=== PATIENT | male | born 1935 | race Caucasian/White ===

== ENCOUNTER 2016-11-30 02:30 | Inpatient (IN) | payer OTHER ==
[~2016-11-30] VITALS: Ht 172.7 cm; Wt 99.8 kg
[~2016-11-30 02:30] MED LIST: CEFUROXIME250 M1 PO; COMPOUND TOP; FINASTERIDE5 M1 PO; FLOMAX0.4 M1 PO
--- NOTE | 2016-11-30 09:53 | Patient Discharge Instructions ---
Discharge Instructions General Discharge Information You were seen/treated for: Hip pain You had these procedures: Total hip replacement Watch for these problems: temp>101, increased redness or drainage of wounds Do not soak the wound: Yes No bath, but you may shower: Yes Other wound care: Keep incision clean and dry. May shower, no bathing. Diet Continue normal diet: Yes Activity Activity Self Limited: Yes Activity Limited to: Weight bear as tolerated Acute Coronary Syndrome Inclusion Criteria At DC or during hospital stay patient has or had the following: ACS DIAGNOSIS No Discharge Core Measures Meds if any: Prescribed or Continued at Discharge Meds if any: NOT Prescribed or Continued at Discharge Congestive Heart Failure Inclusion Criteria At DC or during hospital stay patient has or had the following: CHF DIAGNOSIS No Discharge Core Measures Meds if any: Prescribed or Continued at Discharge Meds if any: NOT Prescribed or Continued at Discharge Cerebrovascular accident Inclusion Criteria At DC or during hospital stay patient has or had the following: CVA/TIA Diagnosis No Discharge Core Measures Meds if any: Prescribed or Continued at Discharge Meds if any: NOT Prescribed or Continued at Discharge Venous thromboembolism Inclusion Criteria VTE Diagnosis No VTE Type NONE VTE Confirmed by (Test) NONE Discharge Core Measures - Per Current guidelines, there needs to be overlap - treatment for the first 5 days of Warfarin therapy. - If discharged on Warfarin prior to 5 days of - overlap therapy, the patient will need to be - assessed for post discharge needs including - *Post discharge parental anticoagulation - *Warfarin and/or parental anticoagulation education - *Follow up date to check INR post discharge At least 5 days overlap therapy as Inpatient No Meds if any: Prescribed or Continued at Discharge Note: Overlap Therapy is Warfarin and Anticoagulant Meds if any: NOT Prescribed or Continued at Discharge
[2016-11-30] MEDS ORDERED: MS CONTIN15 M2 PO (09:55)
[2016-11-30] MEDS ORDERED: COLACE100 M1 PO (09:55)
[2016-11-30] MEDS ORDERED: DILAUDID4 M1 PO (09:55)
[2016-11-30] MEDS ORDERED: MIRALAX17 G1 PO (09:55)
[2016-11-30] MEDS ORDERED: ASPIRIN EC325 M2 PO (09:55)
--- NOTE | 2016-11-30 09:57 | Admission Core Measures ---
Admission Meds I reviewed the following Meds: Current Medications Sig/Chito Start time Last Medication Dose Stop Time Status Admin Acetaminophen 975 MG ONCE 11/30 NR (Tylenol) 11/30 2358 Cefazolin Sodium 2,000 MG ONCE 11/30 NR (Kefzol-Ancef Inj) 11/30 2358 Finasteride 5 MG DAILY 11/30 999 UNVr (Proscar) Oxycodone HCl 10 MG ONCE 11/30 NR (Roxicodone) 11/30 2358 Tamsulosin HCl 0.4 MG DAILY 11/30 1000 UNVr (Flomax) Acute Coronary Syndrome Inclusion Criteria ACS Diagnosis No Inpatient Core Measures LDL Reminder: If No, please order W/I first 24hr of stay Congestive Heart Failure Inclusion Criteria CHF Diagnosis No Cerebrovascular accident Inclusion Criteria CVA/TIA Diagnosis No Inpatient Core Measures Bedside Swallow Eval Reminder: If BSE failed, place ST order Antithrombotic Reminder: Order Antithrombotic Medication by end of day 2 Antithrombotic Reminder: Document Reason Antithrombotic Not ordered by end of day 2 AFIB/Flutter Reminder: If Present, add to problem list AFIB/Flutter Reminder: Order Anticoag Medication for pts with AFIB/Flutter Atherosclerosis Reminder: If Present, add to problem list LDL Reminder: If No, please order W/I first 24hr of stay PT Order Reminder: If No, please order Venous thromboembolism Inpatient Core Measures VTE Risk Factors: Age > 40, Surgery No [facility] VTE prophylaxis d/t No contraindications No VTE Pharm Prophylaxis d/t No contraindications Inclusion Criteria - Per Current guidelines, there needs to be overlap - treatment for the first 5 days of Warfarin therapy. - Parenteral Anticoagulation (IV or SC) needs to be - given along with Warfarin therapy. VTE Diagnosis No VTE Type NONE VTE Confirmed by (Test) NONE Problem List As ranked by this Provider includes Assessment & Plan 1. Status post total hip replacement, right HOME MEDS Home Med List Aspirin (Ecotrin*) 325 MG TABLET.DR 1 TAB PO BID BLOOD THINNER Docusate Sodium (Colace) 100 MG CAPSULE 1 CAP PO BID CONSTIPATION Finasteride 5 MG TABLET 1 TAB PO DAILY PROSTRATE Hydromorphone HCl (Dilaudid) 4 MG TABLET 1-2 TAB PO Q4P PAIN Morphine Sulfate (Ms Contin) 15 MG TABLET.ER 1 TAB PO BID PAIN Polyethylene Glycol 3350 (Miralax) 17 GRAM POWD.PACK 1 PAC PO DAILY CONSTIPATION Tamsulosin HCl (Flomax) 0.4 MG CAP.ER.24H 1 TAB PO DAILY PROSTRATE
--- NOTE | 2016-11-30 10:04 | Surg Short-stay <48hrs Dis Sum ---
Visit Information Visit Dates Admission Date: 11/30/16 Discharge Date: 12/01/16 Surgical Short Stay DC Summary Admission Diagnosis: Hip pain Final Diagnosis: s/p right total hip replacement Procedure(s): R THR - see operartive report Summary/Significant Findings: Pt underwent a right total hip replacemet on 11/30. He returned to the PACU in stable condition. Over the next 24 hours, his pain was well controlled, he was able to void spontaneously and he worked with PT. He was cleared by PT for discharge home with services. Condition at Discharge: good Discharge Disposition: home health services Discharge instructions provided to patient/family: Yes Post discharge follow-up plan: Scheduled appointment with Dr Baron in 6 weeks.
--- NOTE | 2016-11-30 11:55 | RADIOLOGY REPORT ---
EXAMINATION: XR HIP, RIGHT CLINICAL INFORMATION: Right hip replacement. COMPARISON: 04/07/2016 TECHNIQUE: Two views of the right hip. FINDINGS: The noncemented components of the right total hip arthroplasty are in their expected positions. The femoral head prosthesis is well centered within the acetabular cup and the femoral stem is located in the proximal femoral diaphysis. There is no endosteal scalloping or periprosthetic fracture. Alignment at the right hip is anatomic. IMPRESSION: There is satisfactory positioning and alignment of components of the right total hip arthroplasty. No acute periprosthetic fracture.
[2016-11-30 12:39] VITALS: BP 122/80
--- NOTE | 2016-11-30 13:41 | PN- Orthopedic ---
Subjective Subjective: Patient received on surgical floor, POD 0, s/p right hip replacement with an anterior approach. Is without complaints at the present time. Specifically denies chest pain, shortness of breath and difficulty breathing. Denies nausea and vomitting, has eaten. Has yet to mobilize, was numb in the immediate post operative period to bilateral lower extremities, but states that he has had return of sensation and strength bilaterally. Objective Vital Signs and I&Os Vital Signs Date Time Temp Pulse Resp B/P B/P Pulse O2 O2 Flow FiO2 Mean Ox Delivery Rate 11/30 1239 76 16 122/80 98 Room Air 11/30 1214 98 Room Air Intake & Output 11/30 1600 11/30 0800 11/30 0000 11/29 1600 11/29 0800 11/29 0000 Intake Total Output Total Balance Patient 220 lb Weight Weight Reported by Patient Measurement Method Physical Exam: General: Alert and oriented x3, no acute distress Cardaic: RRR, s1s2 Pulmonary: Expiratory wheeze noted left Abdomen: non-tender, non-distended Extremities: Moves all extremities, distal sensation intact. Skin warm and well perfused. DP pulses palpable bilaterally. Motor 5/5 in plantar and dorsi flexion. Bilateral calves soft and non-tender. Surgical site: Right hip/groin. Dressing dry and intact. Thigh compartments soft. Assessment/Plan Assessment/Plan This is a 80 year old male, POD 0, s/p R BERNABE, anterior approach. Doing well. PMH significant for BPH, home medications have been restarted. Plan: -Activity: OOB with PT/Nursing, rolling walker, WBAT -ABX ppx: Ancef 2 grams, q8 hours, x 2 additional post operative doses -DVT ppx: Mechanical: ALPS in house, TEDS at discharge Pharmacological: ASA 325 bid -Pain Regimen: PO dilaudid to be given first, 2-4mg depending on pain scale IV morphine to be given as breakthrough every two hours as needed -Diet: Can be advanced as tolerated -Bowel Regimen: Colace 100 bid, Miralax: 17 gm daily -Dispo planning: Likely home with home health services tomorrow Will d/w Dr. Baron Core Measures/Miscellaneous Venous Thromboembolism VTE Risk Factors: Age > 40, Surgery VTE Contraindications: No Contraindications VTE Diagnosis: No VTE Type: NONE VTE Confirmed by (Test): NONE Beta Charles Is Beta Charles a Home Med? No Antibiotics Is Patient on Antibiotics? Yes If Yes: prophylaxis
--- NOTE | 2016-11-30 14:18 | NUR ---
NSG NOTE: PATIENT VOMITTED APPROX 200 CC AFTER EATING LUNCH; PATIENT REFUSING IV ZOFRAN AT THIS TIME; SURGICAL PA SHANELLE AWARE; WILL CONT TO MONITOR
--- NOTE | 2016-11-30 14:19 | NUR ---
NSG NOTE LATE ENTRY: PATIENT ARRIVED TO FLOOR AT APPROX 1140 FROM PACU VIA STRETCHER ACCOMPANIED BY DISTRIBUTION; PATIENT GREETED BY RIP PAEZ TO GET OFF STRETCHER FOLLOWING SURGERY. PATIENT UNABLE TO AMBULATE AT THAT TIME- PATIENT EXPERIENCING NUMBESS TO RT LEG FROM SPINAL; PATIENT A/OX3; RA; VSS (SEE CHARTING); IVF HUNG AND RUNNING PER ORDER; DENIES PAIN; POS CMS/POS PULSES; ICE TO RT HIP; DSG INTACT; PATIENTS 2 DAUGHTERS PRESENT AT THE BEDSIDE; ORIENTED TO ROOM; CALL CASTELLANOS IN REACH; WILL CONT TO MONITOR;
[2016-11-30 14:57] VITALS: BP 160/100
--- NOTE | 2016-11-30 19:37 | Operative Report ---
Operative/Inv Procedure Report Surgery Date: 11/30/16 Name of Procedure: Right total hip replacement Pre-Operative Diagnosis: Primary right hip DJD Post-Operative Diagnosis: Same Estimated Blood Loss: 250 Surgeon/Licensed Psychiatric Technician: AMANDA WIGGINS,RACIEL Arrieta Anesthesia: block Operative/Procedure Note Note: Description of Procedure: The patient was taken to the operating room and positively identified. After induction of spinal anesthesia and administration of appropriate pre-operative antibiotics, the patient was positioned supine on the operating room table and all bony prominences were well padded. After performing a surgical timeout, the right lower extremity was prepped and draped in the usual sterile fashion. A direct anterior approach was made to the right hip. The incision was carried sharply through superficial soft tissues to the level of the fascia. Meticulous hemostasis was maintained with Bovie electocautery. The fascia over the tensor fascia alo muscle was opened sharply and the interval between the TFL and the sartorius was entered bluntly taking care to stay lateral to the lateral femoral cutaneous nerve. Retractors were placed around the femoral neck and the pericapsular fat was identified. The ascending branches of the lateral femoral circumflex vessels were identified and carefully coagulated. The pericapsular fat and anterior capsule were then resected. A napkin ring osteotomy was performed and the femoral head was removed without difficulty. Attention was then turned to the acetabulum. After appropriate placement of retractors, the acetabulum was exposed. Soft tissue was cleaned from the acetabular margin and notch. Overhanging osteophytes were removed and the teardrop was exposed. The acetabulum was then sequentially reamed to accept a 58 mm Edith Tritanium hemispherical solid back shell. This was impacted into place in the appropriate position and fitted with a 36 mm Trident X3 zero degree polyethylene insert. Attention was then turned to the femur. After performing the appropriate ligament releases, the proximal femur was exposed. It was then sequentially broached to accept a size 3 [place] Accolade 2 stem. This was trialed for leg length and stability. The trial component was removed and the final component was impacted into place. The trunnion was carefully cleaned and fit with a 36 mm, + 2.5 Biolox delta ceramic femoral head. The hip was reduced and put through a full range of motion and found to be stable. The articular space was then irrigated with sterile saline. The periarticular soft tissues were infilitrated with Marcaine. The fascial layer was closed with interrupted #1 vicryl suture and the skin was re-approximated with interrupted 2 -0 vicryl. The skin was closed with a running 3-0 V-Lock suture. Steri-strips and a sterile dressing were applied. The patient was awakened and taken to the recovery room in satisfactory condition.
[2016-11-30 22:31] VITALS: BP 120/66
[2016-12-01 01:02] VITALS: BP 102/46
--- NOTE | 2016-12-01 01:08 | NUR ---
NURSING NOTE: PTS BP 102/46 AT THIS TIME, ALL OTHER VSS, A&OX3, NO ACUTE DISTRESS OR COMPLAINTS OF PAIN. PA 416 PIERRE MADE AWARE, WILL CONTINUE TO MONITOR VS PER ORDERS.
[2016-12-01 05:26] VITALS: BP 130/82
[2016-12-01 08:53] LABS: ABSOLUTE BASOPHIL COUNT 0 /CUMM (0.0-0.2); ABSOLUTE EOSINOPHIL COUNT 0 /CUMM (0.0-0.7); ABSOLUTE LYMPH COUNT 2.3 /CUMM (1.2-3.4); ABSOLUTE MONOCYTE COUNT 1.1 /CUMM (0.10-0.60); BASOPHIL % 0.4 % (0.0-2.0); EOSINOPHIL % 0.2 % (0-5); GRANULOCYTE % 69.7 % (42.2-75.2); HEMATOCRIT 36.5 % (42-52); MEAN CORPUSCULAR HGB CONC 32.9 G/DL (33.0-37.0); MEAN CORPUSCULAR VOLUME 82.3 FL (80.0-94.0); MEAN PLATELET VOLUME 9.1 FL (7.4-10.4); PLATELET COUNT 245 /CUMM (130-400); RBC DISTRIBUTION WIDTH 13.7 % (11.5-14.5); RED BLOOD CELL CT 4.44 /CUMM (4.70-6.10); WHITE BLOOD CELL COUNT 11.4 /CUMM (4.8-10.8)
--- NOTE | 2016-12-01 09:26 | PN- Orthopedic ---
Subjective Subjective: Patient is comfortable, had pain overnight which was relieved with pain medication. He is up and ambulatory with physical therapy without difficulty and is cleared PT. Denies any fever or chest pain or flulike illness. Objective Vital Signs and I&Os Vital Signs Date Time Temp Pulse Resp B/P B/P Pulse O2 O2 Flow FiO2 Mean Ox Delivery Rate 12/01 0838 88 130/82 12/01 0526 97.7 88 20 130/82 99 Room Air 12/01 0102 98.0 72 18 102/46 98 Room Air 11/30 2231 97.5 95 18 120/66 95 Room Air 11/30 1457 97.6 93 20 160/100 96 11/30 1239 76 16 122/80 98 Room Air 11/30 1214 98 Room Air Intake & Output 12/01 1600 12/01 0800 12/01 0000 11/30 1600 11/30 0800 11/30 0000 Intake Total 1080 1160 Output Total 1300 1200 500 Balance -220 -1200 660 Intake, IV 600 200 Intake, Oral 480 960 Number 0 1 Bowel Movements Output, 200 Emesis Output, Urine 1300 1200 300 Patient 220 lb Weight Weight Reported by Patient Measurement Method Physical Exam: Well-developed well-nourished no apparent distress. HEENT: Atraumatic, extraocular motion intact Neck: Supple, no lymphadenopathy Respiratory: No respiratory distress Extremities: No edema RIGHT lower extremity hip dressing in place, Dressing clean dry and intact Mild thigh edema No signs of infection. No shortening or rotation Hip range of motion is limited and without unexpected pain Neurovascularly intact distally Bilateral calves are supple, nontender. Neuro: Alert and oriented x3 Psych: Mood affect normal, normal memory normal judgment. Skin: Warm and dry, no rash on exposed skin Results Last 48 Hours of Labs: Laboratory Tests 12/01 0717 Chemistry Sodium (137 - 145 mmol/L) 138 Potassium (3.5 - 5.1 mmol/L) 4.3 Chloride (98 - 107 mmol/L) 100 Carbon Dioxide (22 - 30 mmol/L) 27 Anion Gap (5 - 16) 12 BUN (9 - 20 mg/dL) 19 Creatinine (0.7 - 1.2 mg/dL) 0.9 Estimated GFR (>60 ml/min) > 60 BUN/Creatinine Ratio (7 - 25 %) 21.1 Hematology CBC w Diff NO MAN DIFF REQ WBC (4.8 - 10.8 /CUMM) 11.4 H RBC (4.70 - 6.10 /CUMM) 4.44 L Hgb (14.0 - 18.0 G/DL) 12.0 L Hct (42 - 52 %) 36.5 L MCV (80.0 - 94.0 FL) 82.3 MCH (27.0 - 31.0 PG) 27.0 RDW (11.5 - 14.5 %) 13.7 Plt Count (130 - 400 /CUMM) 245 MPV (7.4 - 10.4 FL) 9.1 Gran % (42.2 - 75.2 %) 69.7 Lymphocytes % (20.5 - 51.1 %) 20.1 L Monocytes % (1.7 - 9.3 %) 9.6 H Eosinophils % (0 - 5 %) 0.2 Basophils % (0.0 - 2.0 %) 0.4 Absolute Granulocytes (1.4 - 6.5 /CUMM) 8.0 H Absolute Lymphocytes (1.2 - 3.4 /CUMM) 2.3 Absolute Monocytes (0.10 - 0.60 /CUMM) 1.1 H Absolute Eosinophils (0.0 - 0.7 /CUMM) 0 Absolute Basophils (0.0 - 0.2 /CUMM) 0 PUBS MCHC (33.0 - 37.0 G/DL) 32.9 L Assessment/Plan Assessment/Plan Postop day #1 status post right total hip arthroplasty anterior approach. Cleared physical therapy, stable for discharge home today Continue aspirin for DVT prophylaxis Discussed with patient and daughter, all questions answered, follow-up in 6 weeks Core Measures/Miscellaneous Venous Thromboembolism VTE Risk Factors: Age > 40, Surgery VTE Contraindications: No Contraindications VTE Diagnosis: No VTE Type: NONE VTE Confirmed by (Test): NONE Beta Charles Is Beta Charles a Home Med? No Antibiotics Is Patient on Antibiotics? Yes If Yes: prophylaxis
[2016-12-01 10:21] VITALS: BP 122/70
== END 2016-12-01 13:05 | disposition home health service (06) | DRG 470 ==
LOC: SDA 02:30 → ENRESERV 10:32 → 2NB 11:39 → ENPENDDIS 12-01 09:27 → 2NB 12-01 13:05
PROVIDERS: Physician Assistant Surgical; ADMIT Orthopaedic Surgery
PROC: 0SR904A Replacement of Right Hip Joint with Ceramic on Polyethylene Synthetic Substitute, Uncemented, Open Approach (ICD-10-PCS; principal; 2016-11-30)
DX: M16.11 Unilateral primary osteoarthritis, right hip (principal); E78.5 Hyperlipidemia, unspecified; G47.33 Obstructive sleep apnea (adult) (pediatric); N40.0 Benign prostatic hyperplasia without lower urinary tract symptoms; M48.00 Spinal stenosis, site unspecified; K21.9 Gastro-esophageal reflux disease without esophagitis
CPT/HCPCS: 2NBP; 36415; 73502-RT; 82436; 88304; 97110-GO; 97116-GO; 97161-GP; 97530-GO; J0690; J0735; J2405; J7042

== ENCOUNTER 2018-01-24 13:15 | Observation (INO) | payer OTHER ==
[~2018-01-24] VITALS: Ht 172.7 cm; Wt 101.6 kg
[~2018-01-24 13:15] MED LIST changes: +ASPIRIN EC325 M2 PO; +COLACE100 M1 PO; +DILAUDID4 M1 PO; +MIRALAX17 G1 PO; +MS CONTIN15 M2 PO
[2018-01-24 13:43] LABS: ABSOLUTE BASOPHIL COUNT 0.1 /CUMM (0.0-0.2); ABSOLUTE EOSINOPHIL COUNT 0.2 /CUMM (0.0-0.7); ABSOLUTE GRANULOCYTE CT 5.3 /CUMM (1.4-6.5); ABSOLUTE LYMPH COUNT 2.7 /CUMM (1.2-3.4); ABSOLUTE MONOCYTE COUNT 0.4 /CUMM (0.10-0.60); BASOPHIL % 0.6 % (0.0-2.0); EOSINOPHIL % 2.8 % (0-5); GRANULOCYTE % 61.2 % (42.2-75.2); HEMATOCRIT 40.5 % (42-52); MEAN CORPUSCULAR HGB 27.8 PG (27.0-31.0); MEAN CORPUSCULAR HGB CONC 33.5 G/DL (33.0-37.0); MEAN PLATELET VOLUME 8.3 FL (7.4-10.4); PLATELET COUNT 256 /CUMM (130-400); RBC DISTRIBUTION WIDTH 13.9 % (11.5-14.5); RED BLOOD CELL CT 4.88 /CUMM (4.70-6.10); WHITE BLOOD CELL COUNT 8.6 /CUMM (4.8-10.8)
[2018-01-24 13:45] LABS: PT 11.6 SEC (9.4-12.5)
--- NOTE | 2018-01-24 13:53 | ED NEURO DEFICIT/STROKE ---
History of Present Illness General Chief Complaint: Neuro Symptoms/ Deficit Stated Complaint: ?TIA PER DAUGHTER, "SPEAKING GIBBERISH" Source: patient, DAUGHTER Exam Limitations: no limitations Vital Signs & Intake/Output Vital Signs & Intake/Output ED Intake and Output 01/27 0000 01/26 1200 Intake Total 800 Output Total Balance 800 Intake, Oral 800 Number 1 Bowel Movements Allergies Coded Allergies: NO KNOWN ALLERGIES (11/09/15) Reconcile Medications Aspirin (Ecotrin*) 81 MG TABLET.DR 81 MG PO DAILY heart . Cholecalciferol (Vitamin D3) 1,000 UNIT TABLET 1 TAB PO DAILY VITAMIN SUPPORT (Reported) Cyanocobalamin (Vitamin B-12) 1,000 MCG TABLET 1 TAB PO DAILY VITAMIN SUPPORT (Reported) Finasteride 5 MG TABLET 1 TAB PO DAILY PROSTRATE Losartan Potassium 25 MG TABLET 1 TAB PO DAILY BLOOD PRESSURE Rosuvastatin Calcium (Crestor) 10 MG TABLET 2 TAB PO DAILY CHOLESTEROL Tamsulosin HCl (Flomax) 0.4 MG CAP.ER.24H 1 TAB PO DAILY PROSTRATE Triage Note: 82 YO MALE TO TRIAGE WITH DAUGHTER FOR "SPEAKING GIBERISH" PER DAUGHTER AT HOME. PT DENIES ANY S/S PT SPEAKING CLEARLY AT THIS TIME. PT A&O X3 AT THIS TIME. NEUORS INTACT. BS 148. DIRK MCGUIRE AT BEDSIDE FOR EVAL. Triage Nurses Notes Reviewed? yes HPI: ALL PATIENT PRESENTS FOR EVALUATION OF confusion poor recall and speaking gibberish that began about 50 minutes ago while at home. 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 She states that she was under the impression that he left to get the pancakes but then found him tending to the pool. She feels she was struggling to replace the lid one of the components of the pool. She states that the patient couldn't remember where [employer] was and seemed to question the the request for pancakes. She feels he just didn't understand or remember something that he had done many times before. Upon presentation to the emergency department symptoms were improving. The patient currently is without complaint and his daughter states that he is "back to his usual self". In addition to the above the patient had trouble expressing his words and his daughter states he was "speaking gibberish". The patient does recall this. The incident lasted about 20 minutes. There was no appreciable facial droop or obvious focal motor weakness aside from the possible clumsiness mentioned above. Patient is a nonsmoker. The patient's daughter is convinced that he had a "TIA ". Past History Travel History Traveled to [place] past 21 day No Medical History Any Pertinent Medical History? see below for history Neurological: NONE EENT: NONE Cardiovascular: NONE Respiratory: obstructive sleep apnea Gastrointestinal: NONE Hepatic: cholelithiasis, FATTY LIVER Renal: benign prost hyperplasia, nephrolithiasis Musculoskeletal: osteoarthritis Psychiatric: NONE Endocrine: NONE Blood Disorders: NONE Cancer(s): NONE GLOBAL CTO/Reproductive: NONE History of MRSA: No History of VRE: No History of CDIFF: No Surgical History Surgical History: KIDNEY STONE REMOVAL Psychosocial History Who do you live with Patient and family Services at Home None What is your primary language [place] Tobacco Use: Never used Family History Hx Contributory? No Review of Systems Review of Systems Constitutional: Reports: no symptoms. EENTM: Reports: no symptoms. Respiratory: Reports: no symptoms. Cardiovascular: Reports: no symptoms. GI: Reports: no symptoms. Genitourinary: Reports: no symptoms. Musculoskeletal: Reports: no symptoms. Skin: Reports: no symptoms. Neurological/Psychological: Reports: see HPI. Hematologic/Endocrine: Reports: no symptoms. Immunologic/Allergic: Reports: no symptoms. All Other Systems: Reviewed and Negative Physical Exam Physical Exam General Appearance: SEE BELOW Cranial Nerves: SEE BELOW Comments: Gen.: Well-nourished, well-developed, no acute respiratory distress. Head: Normocephalic, atraumatic. Eyes: Normal inspection bilaterally, PERRLA, EOMI Ears: Normal inspection bilaterally Nose: Normal inspection Throat/mouth : Moist mucosa Neck: Supple, full range of motion, no goiter, no carotid bruits, equal carotid pulses Heart: Regular rate and rhythm, no murmurs rubs or gallops Lungs: Clear to auscultation bilaterally with normal air entry Chest: Nontender Back: Normal range of motion Abdomen: Nondistended, normal bowel sounds Extremities: Normal range of motion grossly, equal radial pulses, no cyanosis clubbing or edema, equal hand grasp, no pronator drift, no dysmetria Neurologic: Cranial nerves 2 through 12 intact, speech is clear and without apparent aphasia, gait is stable Skin: warm and dry Psychiatric: Calm, cooperative, no apparent delusions or hallucinations Core Measures CVA/TIA Diagnosis: No Swallow Evaluation Pass Swallow eval date 01/24/18 Swallow eval time 1530 Sepsis Present: No Sepsis Focused Exam Completed? No Progress Differential Diagnosis: Hoffmann's Palsy, hypoglycemia, stroke, tia Plan of Care: Orders Procedure Date/time Status MRI-HEAD W/O IZA 01/24 1726 Active Patient Data 01/[address] in observation 01/24 1650 Active MRI-HEAD W & W/O IZA 01/24 1650 Active URINALYSIS 01/24 1542 Complete FingerStick- Glucose 01/24 1326 Active TROPONIN LEVEL 01/24 1326 Complete PROTHROMBIN TIME 01/24 1326 Complete COMPREHENSIVE METABOLIC PANEL 01/24 1326 Complete CREATINE PHOSPHOKINASE 01/24 1326 Complete CBC WITHOUT DIFFERENTIAL 01/24 132 Complete EKG 01/24 132 Active TYPE & SCREEN (NOT X-MATCH) 01/24 1326 Complete Laboratory Tests 01/24/18 1540: Urine Color YEL, Urine Clarity CLEAR, Urine pH 6.0, Ur Specific [place] 1.025, Urine Protein NEG, Urine Ketones TRACE H, Urine Nitrite NEG, Urine Bilirubin NEG, Urine Urobilinogen 0.2, Ur Leukocyte Esterase NEG, Ur Microscopic SEDIMENT EXAMINED, Urine RBC 3-5, Urine WBC 1-3 H, Ur Epithelial Cells RARE, Urine Bacteria FEW H, Urine Mucus FEW, Urine Hemoglobin SMALL H, Urine Glucose NEG 01/24/18 1328: Anion Gap 13, Estimated GFR > 60, BUN/Creatinine Ratio 25.6 H, Glucose 139 H, Calcium 8.9, Total Bilirubin 0.3, AST 21, ALT 35, Alkaline Phosphatase 65, Creatine Kinase 189 H, Troponin I < 0.01, Total Protein 6.7, Albumin 4.0, Globulin 2.7, Albumin/Globulin Ratio 1.5, PT 11.6, INR 1.06, CBC w Diff NO MAN DIFF REQ, RBC 4.88, MCV 83.0, MCH 27.8, MCHC 33.5, RDW 13.9, MPV 8.3, Gran % 61.2, Lymphocytes % 31.0, Monocytes % 4.4, Eosinophils % 2.8, Basophils % 0.6, Absolute Granulocytes 5.3, Absolute Lymphocytes 2.7, Absolute Monocytes 0.4, Absolute Eosinophils 0.2, Absolute Basophils 0.1 Initial ED EKG: NSR, rate (90), 1ST HB Comments: 01/24/2018 3:38:57 PM patient's case discussed with Dr. Echeverria who agrees that the patient likely suffered a TIA. I am awaiting Dr. Jones. Departure Departure Disposition: STILL A PATIENT Condition: Stable Clinical Impression Primary Impression: TIA (transient ischemic attack) Referrals: Rolo Jones MD (PCP/Family) Departure Forms: Customer Survey General Discharge Information Prescriptions: Current Visit Scripts Aspirin (Ecotrin*) 81 MG PO DAILY #30 TAB . Rosuvastatin Calcium (Crestor) 2 TAB PO DAILY #60 TAB Losartan Potassium 1 TAB PO DAILY #30 TAB Observation Note Spoke With: Rolo Jones MD Place Patient In: Non-ED OBS Care Area Rationale for Observation: My rational for observation is as follows patient's clinical presentation is consistent with a TIA placing him at high risk of future stroke. The patient were to go onto a completed stroke he would have a grave disability with severe compromise his ability to speak and communicate. I feel this patient is a poor candidate for outpatient management given the possibility of grave disability. I feel he requires observation in the hospital for echocardiogram, optimization of medical management and consideration of neurology and cardiology consultations to investigate and potentially treat reversible causes of TIA and stroke.
[2018-01-24] MEDS ORDERED: VITAMIN B-121000 MC3 PO (14:09)
--- NOTE | 2018-01-24 15:07 | CT SCAN REPORT ---
EXAMINATION: CT HEAD WITHOUT CONTRAST CLINICAL INFORMATION: CVA. COMPARISON: MRI of the brain from 09/25/2013. Head CT from 09/14/2013. TECHNIQUE: Contiguous axial imaging was performed from the skull base to vertex without intravenous administration of contrast. DLP: 617 mGy-cm FINDINGS: There is no evidence of acute intracranial hemorrhage or territorial infarction. No abnormal mass effect or midline shift is seen. Stiles to white matter differentiation is well preserved. No extra-axial fluid collections are identified. Moderate prominence of the lateral and third ventricles is redemonstrated, unchanged. This appears out of proportion to sulcal prominence. Attenuation within the brain is fairly well-maintained. No acute osseous abnormalities. Tiny retention cysts are visualized in the partially imaged maxillary sinuses. The upper nasal cavity and nasopharynx appear unremarkable. The mastoid air cells and middle ear cavities are clear. No acute soft tissue abnormalities. IMPRESSION: No acute intracranial pathology. There is moderate, stable ventricular prominence which seems slightly out of proportion of the sulcal prominence. This may relate to central greater than peripheral volume loss. Normal pressure hydrocephalus is not excluded.
[2018-01-24] MEDS ORDERED: VITAMIN D31000 UNI2 PO (15:33)
--- NOTE | 2018-01-24 16:25 | Cons- Neurology ---
General Information and HPI Consulting Request Date of Consult: 01/24/18 Requested By: Dr Hoffmann History of Present Illness: 82-year-old male had unusual event this afternoon History obtained from records and from patient and patient's daughter At about 1 PM he was speaking and then seemed to make no sense Daughter felt he was confused Patient recalls that he could not find the words he needed Entire episode lasted about 20 minutes During the episode he did not have focal weakness or headache or visual change There was no paresthesia He did not fall or sustain any head trauma No similar episodes previously No change in any medications Patient did not develop imbalance Allergies/Medications Allergies: Coded Allergies: NO KNOWN ALLERGIES (11/09/15) Home Med List: Cholecalciferol (Vitamin D3) 1,000 UNIT TABLET 1 TAB PO DAILY VITAMIN SUPPORT (Reported) Cyanocobalamin (Vitamin B-12) 1,000 MCG TABLET 1 TAB PO DAILY VITAMIN SUPPORT (Reported) Finasteride 5 MG TABLET 1 TAB PO DAILY PROSTRATE Tamsulosin HCl (Flomax) 0.4 MG CAP.ER.24H 1 TAB PO DAILY PROSTRATE Current Medications: Current Medications Sig/Chito Start time Last Medication Dose Route Stop Time Status Admin Aspirin 0 .STK-MED ONE 01/24 1611 DC PO Aspirin 81 MG ONCE ONE 01/24 1545 DC 01/24 PO 01/24 1546 1613 Review of Systems Review of Systems: Denies headache diplopia,, vertigo, No chest pain or Breathing difficulty, no nausea vomiting No incontinence, no fall, no fevers, no weakness No rashes Other systems reviewed are negative Past History Travel History Traveled to [place] past 21 day No Medical History Neurological: NONE EENT: NONE Cardiovascular: NONE Respiratory: obstructive sleep apnea Gastrointestinal: NONE Hepatic: cholelithiasis, FATTY LIVER Renal: benign prost hyperplasia, nephrolithiasis Musculoskeletal: osteoarthritis Psychiatric: NONE Endocrine: NONE Blood Disorders: NONE Cancer(s): NONE 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 spouse, child Services at Home: None Primary Language: Kiswahili Smoking Status: Never Smoked Functional Ability ADLs Independent: dressing, eating, toileting, bathing. Ambulation: independent IADLs Needs Assist: shopping, housework, finances, food prep, telephone, transportation, medication admin. Exam & Diagnostic Data Vital Signs and I&O Vital Signs Date Time Temp Pulse Resp B/P B/P Pulse O2 O2 Flow FiO2 Mean Ox Delivery Rate 01/24 1549 97.2 84 20 166/85 97 Room Air 01/24 1331 98.4 106 18 140/62 98 Room Air Intake & Output 01/24 1600 01/24 0800 01/24 0000 Intake Total 0 Output Total Balance 0 Intake, Oral 0 Patient 220 lb Weight Weight Reported by Patient Measurement Method Alert and oriented No dysarthria No aphasia Language functions fund of knowledge attention and concentration recall intact Heart sounds normal no carotid bruits distal pulses intact Extraocular movements full pupils equal reactive fundi benign visual reid intact no facial weakness or facial sensory loss Lancing and shoulders intact hearing grossly intact Normal tone and strength upper and lower extremities No sensory loss to light touch or position Deep tendon reflexes 1+ bilateral Cognitive functions and gait normal Last 48 Hours of Lab Results: Laboratory Tests 01/24 01/24 1540 1328 Chemistry Sodium (137 - 145 mmol/L) 141 Potassium (3.5 - 5.1 mmol/L) 4.1 Chloride (98 - 107 mmol/L) 105 Carbon Dioxide (22 - 30 mmol/L) 23 Anion Gap (5 - 16) 13 BUN (9 - 20 mg/dL) 23 H Creatinine (0.7 - 1.2 mg/dL) 0.9 Estimated GFR (>60 ml/min) > 60 BUN/Creatinine Ratio (7 - 25 %) 25.6 H Glucose (65 - 99 mg/dL) 139 H Calcium (8.4 - 10.2 mg/dL) 8.9 Total Bilirubin (0.2 - 1.3 mg/dL) 0.3 AST (17 - 59 U/L) 21 ALT (21 - 72 U/L) 35 Alkaline Phosphatase (< 127 U/L) 65 Creatine Kinase (55 - 170 U/L) 189 H Troponin I (<0.11 ng/ml) < 0.01 Total Protein (6.3 - 8.2 g/dL) 6.7 Albumin (3.5 - 5.0 g/dL) 4.0 Globulin (1.9 - 4.2 gm/dL) 2.7 Albumin/Globulin Ratio (1.1 - 2.2 %) 1.5 Coagulation PT (9.4 - 12.5 SEC) 11.6 INR (0.90 - 1.17) 1.06 Hematology CBC w Diff NO MAN DIFF REQ WBC (4.8 - 10.8 /CUMM) 8.6 RBC (4.70 - 6.10 /CUMM) 4.88 Hgb (14.0 - 18.0 G/DL) 13.6 L Hct (42 - 52 %) 40.5 L MCV (80.0 - 94.0 FL) 83.0 MCH (27.0 - 31.0 PG) 27.8 MCHC (33.0 - 37.0 G/DL) 33.5 RDW (11.5 - 14.5 %) 13.9 Plt Count (130 - 400 /CUMM) 256 MPV (7.4 - 10.4 FL) 8.3 Gran % (42.2 - 75.2 %) 61.2 Lymphocytes % (20.5 - 51.1 %) 31.0 Monocytes % (1.7 - 9.3 %) 4.4 Eosinophils % (0 - 5 %) 2.8 Basophils % (0.0 - 2.0 %) 0.6 Absolute Granulocytes (1.4 - 6.5 /CUMM) 5.3 Absolute Lymphocytes (1.2 - 3.4 /CUMM) 2.7 Absolute Monocytes (0.10 - 0.60 /CUMM) 0.4 Absolute Eosinophils (0.0 - 0.7 /CUMM) 0.2 Absolute Basophils (0.0 - 0.2 /CUMM) 0.1 Urines Urine Color (YEL,AMB,STR) YEL Urine Clarity (CLEAR) CLEAR Urine pH (5.0 - 8.0) 6.0 Ur Specific [place] (1.001 - 1.035) 1.025 Urine Protein (NEG,<30 MG/DL) NEG Urine Ketones (NEG) TRACE H Urine Nitrite (NEG) NEG Urine Bilirubin (NEG) NEG Urine Urobilinogen (0.1 - 1.0 EU/dl) 0.2 Ur Leukocyte Esterase (NEG) NEG Ur Microscopic SEDIMENT EXAMINED Urine RBC (0 - 5 /HPF) 3-5 Urine WBC (0 - 2 /HPF) 1-3 H Ur Epithelial Cells (NONE,FEW) RARE Urine Bacteria (NEG/NONE) FEW H Urine Mucus (FEW,NONE) FEW Urine Hemoglobin (NEG) SMALL H Urine Glucose (N MG/DL) NEG Imaging/Other Studies: CT head IMPRESSION: No acute intracranial pathology. There is moderate, stable ventricular prominence which seems slightly out of proportion of the sulcal prominence. This may relate to central greater than peripheral volume loss. Normal pressure hydrocephalus is not excluded. Assessment/Plan Assessment: Transient neurologic episode of what appears to be a aphasia Etiology may be TIA versus aphasic seizure Recommendations: Carotid ultrasound EEG Aspirin Echocardiogram EKG Consult Acknowledgment - Thank you for your consult request.
--- NOTE | 2018-01-24 18:07 | History & Physical ---
See Addendum Eric Lou 01/24/18 1806: General Information and HPI Source of Information: patient Exam Limitations: no limitations History of Present Illness: Mr. Silva is an 82-year-old male with a history of BPH and JENN (noncompliant with CPAP), no reported cardiac history, who presents to the emergency department after 10-20 minute episode earlier today in which he "couldn't talk, and didn't know what was happening". Mr. Silva currently reports that he is back at his baseline, but early this afternoon during this episode he was unable to make the right words come out. Apparently, per his daughter, she had sent him to [employer] for some pancakes and then found him by the pool unsure of what he was doing. The patient reports no facial droop, no tingling or numbness , no visual changes, no headache, no chest pain, no abdominal pain, no difficulty chewing or swallowing, no back pain, no neck pain and no edema. The patient reports that he has seen a assistant coach years ago in the past, but was not sure why and stopped following up. Patient lives at home with his daughter, denies alcohol use or illicit drug use. The patient does report significant smoking history of 1 pack per day for several years on and off, before quitting approximately 40 years ago and then relapsing to occasional cigarette use 8 years after that. He currently reports being a non-smoker. The patient also reports a family history of cancer in his brother and sister, as "we were all smokers". Allergies/Medications Allergies: Coded Allergies: NO KNOWN ALLERGIES (11/09/15) Home Med list Cholecalciferol (Vitamin D3) 1,000 UNIT TABLET 1 TAB PO DAILY VITAMIN SUPPORT (Reported) Cyanocobalamin (Vitamin B-12) 1,000 MCG TABLET 1 TAB PO DAILY VITAMIN SUPPORT (Reported) Finasteride 5 MG TABLET 1 TAB PO DAILY PROSTRATE Tamsulosin HCl (Flomax) 0.4 MG CAP.ER.24H 1 TAB PO DAILY PROSTRATE Compliance With Home Meds: FAIR Past History Travel History Traveled to [place] past 21 day No Medical History Neurological: NONE EENT: NONE Cardiovascular: NONE Respiratory: obstructive sleep apnea Gastrointestinal: NONE Hepatic: cholelithiasis, FATTY LIVER Renal: benign prost hyperplasia, nephrolithiasis Musculoskeletal: osteoarthritis Psychiatric: NONE Endocrine: NONE Blood Disorders: NONE Cancer(s): NONE 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 spouse, child Services at Home: None Primary Language: Moldovan Smoking Status: Former Smoker ETOH Use: denies use Illicit Drug Use: denies illicit drug use Functional Ability ADLs Independent: dressing, eating, toileting, bathing. Ambulation: independent IADLs Needs Assist: shopping, housework, finances, food prep, telephone, transportation, medication admin. Review of Systems Review of Systems Constitutional: Denies: chills, fever, weakness. EENTM: Denies: blurred vision, double vision, visual changes, hearing changes. Cardiovascular: Denies: chest pain, orthopena, palpitations, peripheral edema, syncope. Respiratory: Denies: cough, orthopnea, short of breath, sputum production. GI: Denies: abdominal pain, nausea, vomiting. Musculoskeletal: Denies: back pain, neck pain. Neurological/Psychological: Denies: confusion, headache, numbness, tingling. Exam & Diagnostic Data Last 24 Hrs of Vital Signs/I&O Vital Signs Date Time Temp Pulse Resp B/P B/P Pulse O2 O2 Flow FiO2 Mean Ox Delivery Rate 01/24 1737 98.1 84 18 155/84 96 Room Air 01/24 1549 97.2 84 20 166/85 97 Room Air 01/24 1331 98.4 106 18 140/62 98 Room Air Intake & Output 01/24 1600 01/24 0800 01/24 0000 Intake Total 0 Output Total Balance 0 Intake, Oral 0 Patient 99.79 kg Weight Weight Reported by Patient Measurement Method Physical Exam General Appearance Alert, Oriented X3, Cooperative, No Acute Distress HEENT Atraumatic, PERRLA, EOMI Neck Supple, No JVD, No thryomegaly, +2 Carotid Pulse wo Bruit Cardiovascular Regular Rate, Normal S1, Normal S2, No Murmurs Lungs Clear to Auscultation Abdomen Normal Bowel Sounds, Soft, No Tenderness Neurological Normal Gait, Normal Speech, Strength at 5/5 X4 Ext, Normal Tone, Sensation Intact, Cranial Nerves 3-12 NL, Reflexes 2+ Extremities No Clubbing, No Cyanosis, No Edema Last 24 Hrs of Labs/Raúl: Laboratory Tests 01/24/18 1540: Urine Color YEL, Urine Clarity CLEAR, Urine pH 6.0, Ur Specific [place] 1.025, Urine Protein NEG, Urine Ketones TRACE H, Urine Nitrite NEG, Urine Bilirubin NEG, Urine Urobilinogen 0.2, Ur Leukocyte Esterase NEG, Ur Microscopic SEDIMENT EXAMINED, Urine RBC 3-5, Urine WBC 1-3 H, Ur Epithelial Cells RARE, Urine Bacteria FEW H, Urine Mucus FEW, Urine Hemoglobin SMALL H, Urine Glucose NEG 01/24/18 1328: Anion Gap 13, Estimated GFR > 60, BUN/Creatinine Ratio 25.6 H, Glucose 139 H, Hemoglobin A1c Pending, Calcium 8.9, Total Bilirubin 0.3, AST 21, ALT 35, Alkaline Phosphatase 65, Creatine Kinase 189 H, Troponin I < 0.01, Total Protein 6.7, Albumin 4.0, Globulin 2.7, Albumin/Globulin Ratio 1.5, PT 11.6, INR 1.06, CBC w Diff NO MAN DIFF REQ, RBC 4.88, MCV 83.0, MCH 27.8, MCHC 33.5, RDW 13.9, MPV 8.3, Gran % 61.2, Lymphocytes % 31.0, Monocytes % 4.4, Eosinophils % 2.8, Basophils % 0.6, Absolute Granulocytes 5.3, Absolute Lymphocytes 2.7, Absolute Monocytes 0.4, Absolute Eosinophils 0.2, Absolute Basophils 0.1 Assessment/Plan Assessment: Patient is a 82-year-old male history of BPH and JENN who presented to the emergency department after an episode of aphasia and confusion earlier today. The patient regained his baseline after 10-20 minutes, by the time he presented to the emergency department. Patient being seen for possible TIA, possible transient global amnesia. 1. TIA 2. BPH As Ranked By This Provider Problem List: 1. Aphasic disturbance 2. Onset of confusion 3. BPH (benign prostatic hyperplasia) 4. Obstructive sleep apnea Core Measures/Misc (03/28) Acute Coronary Syndrome ACS Diagnosis: No Congestive Heart Failure Congestive Heart Failure Diagnosis No Cerebrovascular Accident CVA/TIA Diagnosis: Yes NIH Stroke Scale: Total 0 Date Last Known Well: 01/24/18 Time Last Known Well: 1300 Symptom Start Date: 01/24/18 Symptom Start Time: 1301 tPA Risk/Benefit discussion I have discussed the risks, benefits, and alternatives of Alteplase treatment including: - If given promptly, can resolve or have major improvement in stroke symptoms. - Bleeding (hemorrhage) is the most common risk that can occur. - Bleeding may occur into the brain and cause~skein spooler serious disability~ including - this is rare, affecting about 1% of patients. - Alternative treatments with proven benefit for patients with stroke include aspirin and care in a specialized unit where staff members pay careful attention to a variety of basic aspects of care. tPA given? No Reason tPA not ordered Medical Contraindication Swallow Evaluation Pass Current/Past Hx AFib/AFlutter No (Unclear cardiac history) No Antithrombotic d/t Medical Contraindication No Anticoagulant d/t Medical Contraindication No Statin d/t Medical Contraindication VTE (View Protocol) VTE Risk Factors Age>40 No Mechanical VTE Prophylaxis d/t N/A MechProphylax Ordered No VTE Pharm Prophylaxis d/t NA PharmProphylax ordered Sepsis (View protocol) Sepsis Present: No If YES complete Sepsis Event Note If YES complete Sepsis Event Note Yony Wiley 01/24/18 1807: Core Measures/Misc (03/28) Sepsis (View protocol) If YES complete Sepsis Event Note If YES complete Sepsis Event Note Resident Review Statement Resident Statement: examined this patient, discussed with corporate development intern, agreed with corporate development intern, discussed with family, reviewed EMR data (avail), discussed with nursing , discussed with case mgmt, reviewed images, amended to note Other Findings: This is 82-year-old male with past medical history significant for JENN not on CPAP, BPH, cholelithiasis, fatty liver, nephrolithiasis was brought in by ambulance by his family for evaluation of acute onset of confusion and garbled speech at around 1 PM. According to the patient who provided history, he was found to have garbled speech at around 1 PM which lasted almost half an hour. Patient recalls that he could not find the words he needed. He is completely alert awake and oriented to time place and person. He denied any focal weakness, numbness, tingling sensation, headache, vision changes, gait changes. No blurry vision or double vision. No paresthesias. He denied any fall, any head trauma. No similar episodes or stroke in the past. No recent change in medications. Patient reports that other than garbled speech and word finding difficulty which lasted for 20 minutes he denied any other complaints. At the time of examination he is completely back to normal. Symptoms resolved. Review of systems completely negative for chest pain, palpitations, short of breath, fever, chills, nausea, vomiting, abdominal pain, change in bladder or bowel habits. He is a former smoker. Denies alcohol abuse, illicit drug abuse. ------ Vitals afebrile, heart rate 106, respiratory rate 18, blood pressure 140/62, saturating at 97 on RA Exam HEENT within normal limit, S1-S2 normal, no JVD, bilateral lung sounds good, abdomen soft nontender nondistended, lower extremity no edema no cyanosis no clubbing. Neuro exam-cranial nerves III through XII intact, no aphasia nor dysarthria. Completely alert awake and oriented. 5/5 all the 4 extremities. No sensory loss to touch. Deep tendon reflexes +2 bilaterally. Cerebellar exam is normal limits, gait intact, passed bedside swallow. Labs CBCs and BEP within normal limit LFT normal Creatinine kinase 189 Troponin negative UA normal COAGS negative EKG normal sinus rhythm, rate 98, no acute ST-T wave changes CT head no acute intracranial pathology 1. TIA Patient was found to have garbled speech with word finding difficulty lasted for about 20 minutes. Patient was noted to have complete resolution of symptoms in the emergency room. CAT scan head was done which showed no intracranial pathology, no ischemic infarcts, no bleeding. Given his transient aphasia this might be possible transient ischemic attack versus aphasic seizure. * Admit to telemetry for further management * Continuous telemetry monitoring * NIH stroke scale * Fall precaution * PT OT * Speech and swallow evaluation * Will get EEG to look for any underlying seizure disorder * Echocardiogram to look for any valvular abnormalities * Ultrasound of neck to look for any stenosis * Serial troponin and EKG * Aspirin 81 daily * Lipitor 80 daily * Follow-up HbA1c * Follow-up lipid panel * Appreciate neuro recommendations BPH Continue Flomax and finasteride home medications Full code DVT prophylaxis subcu heparin Regular diet Pain pathway ordered Rolo Jones MD 01/24/181921: Core Measures/Misc (03/28) Sepsis (View protocol) If YES complete Sepsis Event Note If YES complete Sepsis Event Note Attending MD Review Statement Attending Statement Attending MD Statement: examined this patient, discuss w/resident/PA/COUNSELLING PSYCHOLOGIST, agreed w/resident/PA/COUNSELLING PSYCHOLOGIST, discussed with family, reviewed EMR data (avail), discussed with nursing, discussed with case mgmt, reviewed images, amended to note Attending Assessment/Plan: Seen and examined This is a gentleman with bilateral nephrolithiasis, previous colon polyps, diverticulosis, severe osteoarthritis of multiple joints, obstructive sleep apnea not on CPAP, previous cerebral vol loss, now with 20 min episode of aphasia with memory loss with complete resolution of symptoms MRI IMPRESSION: - No acute intracranial findings. No acute infarcts. - There is global cerebral volume loss and there is mild chronic microangiopathy. 01/24/181857 Issues TIA vs transient aphasia vs transient global cerebral ischemia vs transient seizure Global cerbral volume loss since 2013 with small vessel dz rule out carotid stenosis BPH Djd hip and muliple joints/ nephrolithiasis/fatty liver Untreated jenn REC Admit Seizure precaution ASA Statin Cont all meds Other plan as noted above Will follow Follow BP
--- NOTE | 2018-01-24 19:10 | MRI REPORT ---
MR BRAIN WITHOUT CONTRAST CLINICAL INFORMATION: TIA symptoms. COMPARISON: Head CT performed earlier the same day. TECHNIQUE: MRI of the brain without contrast was obtained using routine sequences. FINDINGS: There is no hydrocephalus, extra-axial surface collection, or herniation. There is global cerebral volume loss and there is mild chronic microangiopathy. The major flow voids at the skull base are preserved. There is no acute infarct on diffusion-weighted imaging. There is no intracranial hemorrhage on the gradient recalled echo acquisition. The midline structures are normal. The cerebellar tonsils are normally positioned. The cerebellum and brainstem are normal. The craniocervical junction is normal. Osseous marrow signal intensity is homogenous. The visualized soft tissues are unremarkable. IMPRESSION: - No acute intracranial findings. No acute infarcts. - There is global cerebral volume loss and there is mild chronic microangiopathy.
--- NOTE | 2018-01-24 19:22 | Admission Certification ---
Admission Certification Certification Statement - As attending physician, I certify that at the time of - admission, based on clinical presentation, severity of - symptoms, need for further diagnostic testing and - therapeutic interventions, and risk of adverse outcomes - without in-hospital treatment, in my clinical assessment, - this patient requires an acute hospital stay for a minimum - of two nights or longer. I have also considered psychsocial - factors such as support system, advanced age, financial - issues, cognitive issues, and failed out-patient treatments, - past re-admission history, safety of patient, and lack of - compliance as applicable. Specific rationale supporting this admission is: stroke vs tia
--- NOTE | 2018-01-24 19:59 | ULTRASOUND REPORT ---
EXAMINATION: US DUPLEX CAROTID AND VERTEBRAL CLINICAL INFORMATION: Check for stenosis COMPARISON: Carotid ultrasound 09/25/2013. TECHNIQUE: Real-time ultrasound and Doppler techniques (integrating B-mode 2D vascular images, Doppler spectral analysis and color flow Doppler imaging) were utilized to interrogate the extracranial carotid and vertebral arteries bilaterally. The degree of stenosis determined by criteria similar to NASCET. FINDINGS: Right common carotid artery peak systolic velocity is 86 cm/s with maximal and end-diastolic velocity of 16 cm/s. Right internal carotid artery peak systolic velocity is 60 cm/s with maximal end-diastolic velocity of 22 cm/s. Right external carotid artery peak systolic velocity is 73 cm/s. There is normal antegrade flow within the right vertebral artery. No atherosclerotic plaque is appreciated at the right carotid bifurcation. Left common carotid artery peak systolic velocity is 107 cm/s with a maximal end-diastolic velocity of 21 cm/s. Left internal carotid artery peak systolic velocity is 71 cm/s with a maximal end-diastolic velocity of 27 cm/s. Left external carotid artery peak systolic velocity is 74 cm/s. There is normal antegrade flow within the left vertebral artery. There is no atherosclerotic plaque at the left carotid bifurcation. IMPRESSION: Unremarkable carotid ultrasound.
[2018-01-24 22:01] VITALS: BP 140/90
[2018-01-25 07:01] VITALS: BP 144/86
--- NOTE | 2018-01-25 07:08 | PN-Observation ---
See Addendum Observation Note Observation Note _ I have personally examined JOHN JAIN. him disposition is uncertain at this time. Before a determination can be made, he requires continued observation for the following reasons [EEG to investigate possible seizure activity as cause of his episode of confusion associated with aphasia]. Assessment/Plan Medical Assessment: Patient is a 82-year-old male history of BPH and JENN who presented to the emergency department after an episode of aphasia and confusion earlier today. The patient regained his baseline after 10-20 minutes, by the time he presented to the emergency department. Patient being seen for possible TIA, possible transient global amnesia. Patient's ongoing clinical picture continues to require observation status. 1. TIA vs. Transient global ischemia vs. transient seizure 29 2. BPH Problem List: 1. Onset of confusion 2. Aphasic disturbance 3. Obstructive sleep apnea 4. BPH (benign prostatic hyperplasia) DVT/Prophylaxis: mechanical Subjective Follow-up For: Aphasic episode with confusion Complaints: no complaints Tele-Events Since Last Visit: NSR with first-degree AV block, rate from 64-82, as well as sinus tach of 104 overnight Subjective: Patient seated comfortably at the bedside, playing Meliuz. Currently denies no complaints, reports that after the episode of confusion and aphasia his symptoms have completely resolved. Overnight, the patient reported that he had difficulty sleeping and not fall asleep at almost 4 AM. However, this is normal for the patient as he often difficulty sleeping throughout the night. Of note, the patient has obstructive sleep apnea but is noncompliant with CPAP. Patient specifically denies numbness, weakness, changes in vision or balance. Review of Systems Constitutional: Denies: chills, fever, malaise, weakness. Cardiovascular: Denies: chest pain, palpitations, syncope. Respiratory: Denies: cough, short of breath, wheezing. Gastrointestinal: Denies: abdominal pain, nausea, vomiting. Musculoskeletal: Denies: back pain, neck pain. Neurological/Psychological: Denies: confusion, headache, numbness, paresthesia, tremors. Objective Last 24 Hrs of Vital Signs/I&O Vital Signs Date Time Temp Pulse Resp B/P B/P Pulse O2 O2 Flow FiO2 Mean Ox Delivery Rate 01/25 0701 97.6 96 18 144/86 97 Room Air 01/24 2201 98.3 65 18 140/90 97 Room Air 01/24 1953 97.8 87 18 143/84 01/24 1936 97.8 87 18 143/84 99 Room Air 01/24 1737 98.1 84 18 155/84 96 Room Air 01/24 1549 97.2 84 20 166/85 97 Room Air 01/24 1331 98.4 106 18 140/62 98 Room Air Intake & Output 01/25 0800 07 0000 01/24 1600 Intake Total 200 240 0 Output Total Balance 200 240 0 Intake, Oral 200 240 0 Patient 101.605 kg 99.79 kg Weight Weight Reported by Patient Measurement Method Physical Exam General Appearance: Alert, Oriented X3, Cooperative, No Acute Distress HEENT: Atraumatic, PERRLA, EOMI Neck: Supple, No JVD, No thryomegaly, +2 Carotid Pulse wo Bruit Cardiovascular: Regular Rate, Normal S1, Normal S2, No Murmurs Lungs: Clear to Auscultation Abdomen: Normal Bowel Sounds, Soft, No Tenderness Neurological: Normal Gait, Normal Speech, Strength at 5/5 X4 Ext, Normal Tone, Sensation Intact, Cranial Nerves 3-12 NL Extremities: No Clubbing, No Cyanosis, No Edema Current Medications: Current Medications Sig/Chito Start time Last Medication Dose Route Stop Time Status Admin Acetaminophen 650 MG Q6P PRN 01/24 1800 AC PO Aspirin 0 .STK-MED ONE 01/24 1611 DC PO Aspirin 81 MG ONCE ONE 01/24 1545 DC 01/24 PO 01/24 1546 1613 Aspirin Buffered 81 MG DAILY 01/25 0900 AC PO Atorvastatin Calcium 80 MG 1700 01/25 1700 AC PO Cholecalciferol 1,000 IU DAILY 01/24 1801 AC PO Cyanocobalamin 1,000 MCG DAILY 01/24 180 AC PO Finasteride 5 MG DAILY 01/24 180 AC 01/24 PO 1952 Heparin Sodium 5,000 UNIT Q8 01/24 2200 AC 01/25 (Porcine) SC 0547 Tamsulosin HCl 0.4 MG DAILY 01/24 1801 AC 01/24 PO 1952 Last 24 Hrs of Labs/Mics: Laboratory Tests 01/25/18 0657: Sodium Pending, Potassium Pending, Chloride Pending, Carbon Dioxide Pending, Anion Gap Pending, BUN Pending, Creatinine Pending, BUN/Creatinine Ratio Pending , Triglycerides Pending, Cholesterol Pending, LDL Cholesterol, Calc Pending, HDL Cholesterol Pending, Cholesterol/HDL Ratio Pending, CBC w Diff Pending, WBC Pending, RBC Pending, Hgb Pending, Hct Pending, MCV Pending, MCH Pending, MCHC Pending, RDW Pending, Plt Count Pending, MPV Pending 01/25/18 0200: Troponin I < 0.01 01/24/18 1950: Troponin I < 0.01 01/24/18 1540: Urine Color YEL, Urine Clarity CLEAR, Urine pH 6.0, Ur Specific Jones 1.025, Urine Protein NEG, Urine Ketones TRACE H, Urine Nitrite NEG, Urine Bilirubin NEG, Urine Urobilinogen 0.2, Ur Leukocyte Esterase NEG, Ur Microscopic SEDIMENT EXAMINED, Urine RBC 3-5, Urine WBC 1-3 H, Ur Epithelial Cells RARE, Urine Bacteria FEW H, Urine Mucus FEW, Urine Hemoglobin SMALL H, Urine Glucose NEG 01/24/18 1328: Anion Gap 13, Estimated GFR > 60, BUN/Creatinine Ratio 25.6 H, Glucose 139 H, Hemoglobin A1c Pending, Calcium 8.9, Total Bilirubin 0.3, AST 21, ALT 35, Alkaline Phosphatase 65, Creatine Kinase 189 H, Troponin I < 0.01, Total Protein 6.7, Albumin 4.0, Globulin 2.7, Albumin/Globulin Ratio 1.5, PT 11.6, INR 1.06, CBC w Diff NO MAN DIFF REQ, RBC 4.88, MCV 83.0, MCH 27.8, MCHC 33.5, RDW 13.9, MPV 8.3, Gran % 61.2, Lymphocytes % 31.0, Monocytes % 4.4, Eosinophils % 2.8, Basophils % 0.6, Absolute Granulocytes 5.3, Absolute Lymphocytes 2.7, Absolute Monocytes 0.4, Absolute Eosinophils 0.2, Absolute Basophils 0.1
[2018-01-25 08:03] LABS: ABSOLUTE BASOPHIL COUNT 0 /CUMM (0.0-0.2); ABSOLUTE EOSINOPHIL COUNT 0.3 /CUMM (0.0-0.7); ABSOLUTE GRANULOCYTE CT 5.3 /CUMM (1.4-6.5); ABSOLUTE LYMPH COUNT 2.1 /CUMM (1.2-3.4); ABSOLUTE MONOCYTE COUNT 0.4 /CUMM (0.10-0.60); BASOPHIL % 0.5 % (0.0-2.0); EOSINOPHIL % 3.4 % (0-5); GRANULOCYTE % 65.2 % (42.2-75.2); HEMATOCRIT 39.8 % (42-52); MEAN CORPUSCULAR HGB 27.6 PG (27.0-31.0); MEAN CORPUSCULAR HGB CONC 33.1 G/DL (33.0-37.0); MEAN CORPUSCULAR VOLUME 83.5 FL (80.0-94.0); MEAN PLATELET VOLUME 8.9 FL (7.4-10.4); PLATELET COUNT 230 /CUMM (130-400); RBC DISTRIBUTION WIDTH 13.7 % (11.5-14.5); RED BLOOD CELL CT 4.77 /CUMM (4.70-6.10); WHITE BLOOD CELL COUNT 8.1 /CUMM (4.8-10.8)
--- NOTE | 2018-01-25 10:24 | Patient Discharge Instructions ---
Discharge Instructions General Discharge Information You were seen/treated for: Episode of aphasia, transient global ischemia Watch for these problems: With further episodes of confusion, difficulty speaking, weakness or numbness please go to your nearest emergency department. Special Instructions: Please follow-up with your primary care doctor and your neurologist about your recent hospital stay. Diet Continue normal diet: Yes Recommended Diet: Regular Activity Full Activity/No Limits: No Activity Self Limited: Yes Acute Coronary Syndrome Inclusion Criteria At DC or during hospital stay patient has or had the following: ACS DIAGNOSIS No Discharge Core Measures Meds if any: Prescribed or Continued at Discharge Meds if any: NOT Prescribed or Continued at Discharge Congestive Heart Failure Inclusion Criteria At DC or during hospital stay patient has or had the following: CHF DIAGNOSIS No Discharge Core Measures Meds if any: Prescribed or Continued at Discharge Meds if any: NOT Prescribed or Continued at Discharge Cerebrovascular accident Inclusion Criteria At DC or during hospital stay patient has or had the following: CVA/TIA Diagnosis Yes Discharge Core Measures Meds if any: Prescribed or Continued at Discharge Antithrombotic No Statin (required if LDL =>70) Yes Anticoagulant No Meds if any: NOT Prescribed or Continued at Discharge No Antithrombotic d/t Medical Contraindication (TIA no longer suspected) No Anticoagulant d/t Medical Contraindication (TIA no longer suspected) Venous thromboembolism Inclusion Criteria VTE Diagnosis No VTE Type NONE VTE Confirmed by (Test) NONE Discharge Core Measures - Per Current guidelines, there needs to be overlap - treatment for the first 5 days of Warfarin therapy. - If discharged on Warfarin prior to 5 days of - overlap therapy, the patient will need to be - assessed for post discharge needs including - *Post discharge parental anticoagulation - *Warfarin and/or parental anticoagulation education - *Follow up date to check INR post discharge At least 5 days overlap therapy as Inpatient No (not on coumadin) Meds if any: Prescribed or Continued at Discharge Note: Overlap Therapy is Warfarin and Anticoagulant Meds if any: NOT Prescribed or Continued at Discharge
[2018-01-25] MEDS ORDERED: LIPITOR80 M1 PO (10:43)
[2018-01-25] MEDS ORDERED: ASPIRIN EC81 M1 PO (10:43)
[2018-01-25 14:36] VITALS: BP 150/84
--- NOTE | 2018-01-25 14:58 | ELECTROENCEPHALOGRAM REPORT ---
Electroencephalogram Report Electroencephalogram Results Date of service: 01/24/18 Attending MD: Karen WIGGINS,Rolo Llanes Fur Machine Operator: Ammy EEG Number: [id number] Test Utilizes: 10-20 system, 21 lead 18 channel digital recording Pertinent Hx/Physical/Neuro Findings/Clin Diagnosis: R/O seizure Inpatient Medications: Current Medications Sig/Chito Start time Last Medication Dose Route Stop Time Status Admin Acetaminophen 650 MG Q6P PRN 01/24 1800 AC PO Aspirin 0 .STK-MED ONE 01/24 1611 DC PO Aspirin 81 MG ONCE ONE 01/24 1545 DC 01/24 PO 01/24 1546 1613 Aspirin Buffered 81 MG DAILY 01/25 0900 AC 01/25 PO 1008 Atorvastatin Calcium 80 MG 1700 01/25 1700 AC PO Cholecalciferol 1,000 IU DAILY 01/24 1801 AC 01/25 PO 1008 Cyanocobalamin 1,000 MCG DAILY 01/24 1801 AC 01/25 PO 1007 Finasteride 5 MG DAILY@1800 01/25 1800 AC PO Finasteride 5 MG DAILY 01/24 1801 DC 01/24 PO 1953 Heparin Sodium 5,000 UNIT Q8 01/24 2200 AC 01/25 (Porcine) SC 0547 Tamsulosin HCl 0.4 MG DAILY@1800 01/25 1800 AC PO Tamsulosin HCl 0.4 MG DAILY 01/24 1801 DC 01/24 PO 1953 Interpretation: Predominant posterior background rhythym shows medium voltage 8-10 CPS activity which attenuates to eye opening. Normal patterns of drowsiness and light sleep noted. No focal or paroxysmal features. Hyperventilation deferred. Photic stimulation induced no abnormalities. Impression: Normal EEG
[2018-01-25 21:48] VITALS: BP 156/78
[2018-01-26 06:29] VITALS: BP 152/88
--- NOTE | 2018-01-26 07:04 | PN-Observation ---
Observation Note Observation Note _ I have personally examined JOHN JAIN. him disposition is uncertain at this time. Before a determination can be made, he requires continued observation for the following reasons [transient global amnesia, follow-up echocardiogram results]. Assessment/Plan Medical Assessment: Patient is a 82-year-old male history of BPH and JENN who presented to the emergency department after an episode of aphasia and confusion/brief memory loss yesterday. The patient regained his baseline after 10-20 minutes, by the time he presented to the emergency department. Patient being seen for possible TIA, possible transient global amnesia. Patient's ongoing clinical picture continues to require observation status, plan for discharge today for close follow-up with PCP, pending results of echocardiogram. 1. Transient global amnesia episode 29 2. BPH 3. Hypertension elevated Problem List: 1. Onset of confusion 2. Aphasic disturbance 3. Obstructive sleep apnea 4. BPH (benign prostatic hyperplasia) DVT/Prophylaxis: mechanical, pharmacological Subjective Follow-up For: Aphasic episode with confusion Tele-Events Since Last Visit: Overnight, normal sinus rhythm rate 60-66, sinus bradycardia 54-58 Subjective: Patient seen seated comfortably at bedside. Overnight patient reports that he slept better. Patient denies any current weakness, dizziness, headaches, confusion, or visual changes. Has not had any episodes of confusion or aphasia since admission. Denies chest pain, palpitations, shortness of breath. Review of Systems Constitutional: Denies: no symptoms. Cardiovascular: Denies: chest pain, edema, palpitations. Respiratory: Denies: cough, short of breath. Gastrointestinal: Denies: abdominal pain, nausea, vomiting. Neurological/Psychological: Denies: cognitive dysfunction, confusion, headache, numbness, paresthesia, tingling, tremors. Objective Last 24 Hrs of Vital Signs/I&O Vital Signs Date Time Temp Pulse Resp B/P B/P Pulse O2 O2 Flow FiO2 Mean Ox Delivery Rate 01/26 0629 97.6 75 20 152/88 97 Room Air 01/25 2148 98.1 75 20 156/78 97 Room Air 01/25 1739 87 150/84 01/25 1436 97.6 87 18 150/84 97 Room Air Intake & Output 01/26 0800 / 0000 01/25 1600 Intake Total 750 Output Total Balance 750 Intake, Oral 750 Physical Exam General Appearance: Alert, Oriented X3, Cooperative, No Acute Distress HEENT: Atraumatic, PERRLA, EOMI Neck: Supple, No JVD, No thryomegaly, +2 Carotid Pulse wo Bruit Cardiovascular: Regular Rate, Normal S1, Normal S2 Lungs: Clear to Auscultation Abdomen: Normal Bowel Sounds, Soft, No Tenderness Neurological: Normal Gait, Normal Speech, Strength at 5/5 X4 Ext, Sensation Intact, Cranial Nerves 3-12 NL Other Physical Findings: Patient able to perform serial sevens and remote and recent memory intact. Current Medications: Current Medications Sig/Chito Start time Last Medication Dose Route Stop Time Status Admin Acetaminophen 650 MG Q6P PRN 01/24 1800 AC PO Aspirin Buffered 81 MG DAILY 01/25 0900 AC 01/25 PO 1008 Atorvastatin Calcium 80 MG 1700 01/25 1700 AC PO Cholecalciferol 1,000 IU DAILY 01/24 1801 AC 01/25 PO 1008 Cyanocobalamin 1,000 MCG DAILY 01/24 1801 AC 01/25 PO 1007 Finasteride 5 MG DAILY@1800 01/25 1800 AC 01/25 PO 1739 Finasteride 5 MG DAILY 01/24 1801 DC 01/24 PO 195 Heparin Sodium 5,000 UNIT Q8 01/24 2200 AC 01/25 (Porcine) AK 2009 Patient Medication 1 ED ONE ONE 01/25 1715 DC Teaching ED 01/25 171 Tamsulosin HCl 0.4 MG DAILY@1800 01/25 1800 AC 01/25 PO 1739 Tamsulosin HCl 0.4 MG DAILY 01/24 1801 MS 01/24 PO 195
--- NOTE | 2018-01-26 10:33 | PN- Pulmonary ---
Subjective HPI/Critical Care Issues: Stable no new issues Objective Current Medications: Current Medications Sig/Chito Start time Last Medication Dose Route Stop Time Status Admin Acetaminophen 650 MG Q6P PRN 01/24 1800 AC PO Aspirin Buffered 81 MG DAILY 01/25 0900 AC 01/26 PO 727 Atorvastatin Calcium 80 MG 1700 01/25 1700 AC PO Cholecalciferol 1,000 IU DAILY 01/24 1801 AC 01/26 PO 727 Cyanocobalamin 1,000 MCG DAILY 01/24 180 AC 01/26 PO 727 Finasteride 5 MG DAILY@1800 01/25 1800 AC 01/25 PO 173 Finasteride 5 MG DAILY 01/24 180 DC 01/24 PO 1952 Heparin Sodium 5,000 UNIT Q8 01/24 2200 AC 01/26 (Porcine) PR 0545 Patient Medication 1 ED ONE ONE 01/25 1715 DC Teaching ED 01/25 171 Tamsulosin HCl 0.4 MG DAILY@1800 01/25 1800 AC 01/25 PO 173 Tamsulosin HCl 0.4 MG DAILY 01/24 180 DC 01/24 PO 1952 Laboratory Tests 01/25 01/25 01/24 0657 0200 1950 Chemistry Sodium (137 - 145 mmol/L) 141 Potassium (3.5 - 5.1 mmol/L) 4.3 Chloride (98 - 107 mmol/L) 103 Carbon Dioxide (22 - 30 mmol/L) 26 Anion Gap (5 - 16) 12 BUN (9 - 20 mg/dL) 21 H Creatinine (0.7 - 1.2 mg/dL) 0.9 Estimated GFR (>60 ml/min) > 60 BUN/Creatinine Ratio (7 - 25 %) 23.3 Troponin I (<0.11 ng/ml) < 0.01 < 0.01 Triglycerides (<150 mg/dL) 223 H Cholesterol (< 200 MG/DL) 164 LDL Cholesterol, Calc (65 - 129 mg/dL) 91 HDL Cholesterol (40 - 60 mg/dL) 29 L Cholesterol/HDL Ratio (0.00 - 4.88 %) 6 H Hematology CBC w Diff NO MAN DIFF REQ WBC (4.8 - 10.8 /CUMM) 8.1 RBC (4.70 - 6.10 /CUMM) 4.77 Hgb (14.0 - 18.0 G/DL) 13.2 L Hct (42 - 52 %) 39.8 L MCV (80.0 - 94.0 FL) 83.5 MCH (27.0 - 31.0 PG) 27.6 MCHC (33.0 - 37.0 G/DL) 33.1 RDW (11.5 - 14.5 %) 13.7 Plt Count (130 - 400 /CUMM) 230 MPV (7.4 - 10.4 FL) 8.9 Gran % (42.2 - 75.2 %) 65.2 Lymphocytes % (20.5 - 51.1 %) 26.0 Monocytes % (1.7 - 9.3 %) 4.9 Eosinophils % (0 - 5 %) 3.4 Basophils % (0.0 - 2.0 %) 0.5 Absolute Granulocytes (1.4 - 6.5 /CUMM) 5.3 Absolute Lymphocytes (1.2 - 3.4 /CUMM) 2.1 Absolute Monocytes (0.10 - 0.60 /CUMM) 0.4 Absolute Eosinophils (0.0 - 0.7 /CUMM) 0.3 Absolute Basophils (0.0 - 0.2 /CUMM) 0 01/24 01/24 1540 1328 Chemistry Sodium (137 - 145 mmol/L) 141 Potassium (3.5 - 5.1 mmol/L) 4.1 Chloride (98 - 107 mmol/L) 105 Carbon Dioxide (22 - 30 mmol/L) 23 Anion Gap (5 - 16) 13 BUN (9 - 20 mg/dL) 23 H Creatinine (0.7 - 1.2 mg/dL) 0.9 Estimated GFR (>60 ml/min) > 60 BUN/Creatinine Ratio (7 - 25 %) 25.6 H Glucose (65 - 99 mg/dL) 139 H Hemoglobin A1c (4.2 - 5.8 %) 5.7 Calcium (8.4 - 10.2 mg/dL) 8.9 Total Bilirubin (0.2 - 1.3 mg/dL) 0.3 AST (17 - 59 U/L) 21 ALT (21 - 72 U/L) 35 Alkaline Phosphatase (< 127 U/L) 65 Creatine Kinase (55 - 170 U/L) 189 H Troponin I (<0.11 ng/ml) < 0.01 Total Protein (6.3 - 8.2 g/dL) 6.7 Albumin (3.5 - 5.0 g/dL) 4.0 Globulin (1.9 - 4.2 gm/dL) 2.7 Albumin/Globulin Ratio (1.1 - 2.2 %) 1.5 Coagulation PT (9.4 - 12.5 SEC) 11.6 INR (0.90 - 1.17) 1.06 Hematology CBC w Diff NO MAN DIFF REQ WBC (4.8 - 10.8 /CUMM) 8.6 RBC (4.70 - 6.10 /CUMM) 4.88 Hgb (14.0 - 18.0 G/DL) 13.6 L Hct (42 - 52 %) 40.5 L MCV (80.0 - 94.0 FL) 83.0 MCH (27.0 - 31.0 PG) 27.8 MCHC (33.0 - 37.0 G/DL) 33.5 RDW (11.5 - 14.5 %) 13.9 Plt Count (130 - 400 /CUMM) 256 MPV (7.4 - 10.4 FL) 8.3 Gran % (42.2 - 75.2 %) 61.2 Lymphocytes % (20.5 - 51.1 %) 31.0 Monocytes % (1.7 - 9.3 %) 4.4 Eosinophils % (0 - 5 %) 2.8 Basophils % (0.0 - 2.0 %) 0.6 Absolute Granulocytes (1.4 - 6.5 /CUMM) 5.3 Absolute Lymphocytes (1.2 - 3.4 /CUMM) 2.7 Absolute Monocytes (0.10 - 0.60 /CUMM) 0.4 Absolute Eosinophils (0.0 - 0.7 /CUMM) 0.2 Absolute Basophils (0.0 - 0.2 /CUMM) 0.1 Urines Urine Color (YEL,AMB,STR) YEL Urine Clarity (CLEAR) CLEAR Urine pH (5.0 - 8.0) 6.0 Ur Specific [place] (1.001 - 1.035) 1.025 Urine Protein (NEG,<30 MG/DL) NEG Urine Ketones (NEG) TRACE H Urine Nitrite (NEG) NEG Urine Bilirubin (NEG) NEG Urine Urobilinogen (0.1 - 1.0 EU/dl) 0.2 Ur Leukocyte Esterase (NEG) NEG Ur Microscopic SEDIMENT EXAMINED Urine RBC (0 - 5 /HPF) 3-5 Urine WBC (0 - 2 /HPF) 1-3 H Ur Epithelial Cells (NONE,FEW) RARE Urine Bacteria (NEG/NONE) FEW H Urine Mucus (FEW,NONE) FEW Urine Hemoglobin (NEG) SMALL H Urine Glucose (N MG/DL) NEG Vital Signs & I&O Last 24 Hrs of Vitals and I&O: Vital Signs Date Time Temp Pulse Resp B/P B/P Pulse O2 O2 Flow FiO2 Mean Ox Delivery Rate 01/26 0629 97.6 75 20 152/88 97 Room Air 01/25 2148 98.1 75 20 156/78 97 Room Air 01/25 1739 87 150/84 01/25 1436 97.6 87 18 150/84 97 Room Air Impression/Plan Impression/Plan Impression/Plan: Attending addendum Stable still has mild memory loss per pt at times only all investigations are nil sig so far Seen and examined This is a gentleman with bilateral nephrolithiasis, previous colon polyps, diverticulosis, severe osteoarthritis of multiple joints, obstructive sleep apnea not on CPAP, previous cerebral vol loss, now with 20 min episode of aphasia with memory loss with complete resolution of symptoms MRI IMPRESSION: - No acute intracranial findings. No acute infarcts. - There is global cerebral volume loss and there is mild chronic microangiopathy. 01/24/181857 EEG nil sig carotid nil acute Issues TIA vs transient aphasia vs transient global cerebral ischemia vs transient seizure Global cerbral volume loss since 2013 with small vessel dz rule out carotid stenosis BPH Djd hip and muliple joints/ nephrolithiasis/fatty liver Untreated britney REC ASA Statin Cont all meds Other plan as noted above Will follow DC on statin and low dose losartan 25 mg daily Follow BP and upon dc if still high will start low dose losartan ok to dc if ok with neuro
--- NOTE | 2018-01-26 12:45 | ECHOCARDIOGRAM REPORT ---
JOHN JAIN Age: 82 : 1935 Gender: M Exam Date: 01/25/2018 18:46 Exam Location: 1 [address] Ht (in): 68 Wt (lb): 220 BSA: 2.22 BP: 144 / 86 Ordering Physician: Rodrigue Wiley MD Referring Physician: Rodrigue Wiley MD Technologist: [facility] Room Number: [id number] Indications: Stroke Rhythm: Sinus Technical Quality: Fair FINDINGS Left Ventricle Normal size left ventricle. Mild to moderate concentric left ventricular hypertrophy. No obvious regional wall motion abnormalities. Normal left ventricular ejection fraction visually estimated at 65%. "pseudonormal" filling pattern of the left ventricle for age (stage 2 diastolic dysfunction). Right Ventricle Normal right ventricular size and function. Right Atrium Normal right atrial size. Left Atrium Normal left atrial size. Mitral Valve Mild mitral annular calcification. Mitral valve mildly thickened. Mild prolapse of the posterior mitral valve leaflet. Mild mitral regurgitation. Aortic Valve Trileaflet aortic valve. Mild aortic sclerosis. No aortic valve stenosis. Mild aortic regurgitation. Tricuspid Valve Structurally normal tricuspid valve. Trace tricuspid regurgitation. No evidence of pulmonary hypertension. Right ventricular systolic pressure estimated to be within the normal range at 28 mmHg. Pulmonic Valve Pulmonic valve not well visualized, grossly normal. Trace pulmonic regurgitation. Pericardium No pericardial effusion. Great Vessels Normal size aortic root. CONCLUSIONS Normal size left ventricle. Mild to moderate concentric left ventricular hypertrophy. Normal left ventricular ejection fraction visually estimated at 65%. "pseudonormal" filling pattern of the left ventricle for age (stage 2 diastolic dysfunction). Normal right ventricular size and function. Normal atrial size. Mild prolapse of the posterior mitral valve leaflet. Mild mitral regurgitation. Mild aortic regurgitation. Trace tricuspid regurgitation. No evidence of pulmonary hypertension. Trace pulmonic regurgitation. Sami Saavedra M.D. (Electronically Signed) Final Date: 26 January 2018 12:41 MEASUREMENTS (Male / Female) Normal Values 2D ECHO LV Diastolic Diameter PLAX 4.8 cm 4.2 - 5.9 / 3.9 - 5.3 cm LV Systolic Diameter PLAX 2.5 cm 2.1 - 4.0 cm LV Fractional Shortening PLAX 47.9 % 25 - 46 % LV Ejection Fraction 2D Teich 79.2 % IVS Diastolic Thickness 1.3 cm LVPW Diastolic Thickness 1.4 cm LV Relative Wall Thickness 0.6 RV Internal Dim ED PLAX 3.2 cm 1.9 - 3.8 cm LVOT Diameter 2.3 cm Aortic Root Diameter 3.5 cm LA Systolic Diameter LX 3.5 cm 3.0 - 4.0 / 2.7 - 3.8 cm LA Volume 48.0 cm 18 - 58 / 22 - 52 cm Ascending Aorta Diameter 3.2 cm DOPPLER AV Peak Velocity 126.0 cm/s AV Peak Gradient 6.4 mmHg AV Mean Velocity 82.7 cm/s AV Mean Gradient 3.0 mmHg AV Velocity Time Integral 25.2 cm AI Deceleration Hancock 341.0 cm/s AI Peak Velocity 508.0 cm/s AI Pressure Half Time 436.0 ms AI Peak Gradient 103.2 mmHg LVOT Peak Velocity 83.5 cm/s LVOT Peak Gradient 2.8 mmHg LVOT Mean Velocity 59.9 cm/s LVOT Mean Gradient 2.0 mmHg LVOT Velocity Time Integral 15.9 cm LVOT Stroke Volume 66.1 cm AV Area Cont Eq vti 2.6 cm AV Area Cont Eq pk 2.8 cm MV Peak Velocity 92.0 cm/s MV Peak Gradient 3.4 mmHg MV Mean Velocity 53.2 cm/s MV Mean Gradient 1.0 mmHg Mitral E Point Velocity 72.1 cm/s Mitral A Point Velocity 70.1 cm/s Mitral E to A Ratio 1.0 MV PHT Velocity 97.9 cm/s MV Deceleration Hancock 408.0 cm/s MV Pressure Half Time 72.0 ms MV Area PHT 3.1 cm MV Deceleration Time 235.0 ms TR Peak Velocity 217.0 cm/s TR Peak Gradient 18.8 mmHg Right Atrial Pressure 5.0 mmHg Pulmonary Artery Systolic Pressure 23.8 mmHg Right Ventricular Systolic Pressure 23.8 mmHg PV Peak Velocity 167.0 cm/s PV Peak Gradient 11.2 mmHg PV Mean Velocity 96.6 cm/s PV Mean Gradient 4.0 mmHg PV Velocity Time Integral 33.5 cm LV E' Lateral Velocity 8.4 cm/s Mitral E to LV E' Lateral Ratio 8.6 LV E' Septal Velocity 5.4 cm/s Mitral E to LV E' Septal Ratio 13.5
--- NOTE | 2018-01-26 13:07 | PN- Neurology ---
Subjective Subjective: No essential complaints Objective Vital Signs and I&Os Vital Signs Date Time Temp Pulse Resp B/P B/P Pulse O2 O2 Flow FiO2 Mean Ox Delivery Rate 01/26 0629 97.6 75 20 152/88 97 Room Air 01/25 2148 98.1 75 20 156/78 97 Room Air 01/25 1739 87 150/84 01/25 1436 97.6 87 18 150/84 97 Room Air Intake & Output 01/26 1600 01/26 0800 01/26 0000 01/25 1600 01/25 0800 01/25 0000 Intake Total 750 200 240 Output Total Balance 750 200 240 Intake, Oral 750 200 240 Patient 224 lb Weight Awake and alert. Speech fluent. Pupils are equal. Extraocular movements full. Face is symmetric. No dysarthria. No focal or lateralizing weakness. Is eating well and is ambulatory. Carotid ultrasound was negative. No significant abnormalities were found on echocardiography. Current Medications: Current Medications Sig/Chito Start time Last Medication Dose Route Stop Time Status Admin Acetaminophen 650 MG Q6P PRN 01/24 1800 AC PO Aspirin Buffered 81 MG DAILY 01/25 0900 AC 01/26 PO 0728 Atorvastatin Calcium 80 MG 1700 01/25 1700 AC PO Cholecalciferol 1,000 IU DAILY 01/24 1801 AC 01/26 PO 0728 Cyanocobalamin 1,000 MCG DAILY 01/24 1801 AC 01/26 PO 0728 Finasteride 5 MG DAILY@1800 01/25 1800 AC 01/25 PO 1739 Heparin Sodium 5,000 UNIT Q8 01/24 2200 AC 01/26 (Porcine) [place] 0545 Patient Medication 1 ED ONE ONE 01/25 1715 MI Teaching ED 01/25 1716 Tamsulosin HCl 0.4 MG DAILY@1800 01/25 1800 AC 01/25 PO 1739 Assessment/Plan Assessment: Left hemispheric TIA, by history. He is back to baseline. He does recount adverse reactions to statin medications in the past Plan: Suggest ongoing aspirin and a lipid-lowering agent which should be discussed with Dr. Jones. The patient is hesitant to continue Lipitor. He may be discharged from our neurologic perspective. Follow-up with neurology would be on a as needed basis.
[2018-01-26] MEDS ORDERED: CRESTOR10 M1 PO (13:50)
[2018-01-26] MEDS ORDERED: ASPIRIN EC81 M1 PO (13:50)
[2018-01-26] MEDS ORDERED: LOSARTAN POTASS25 M1 PO (13:53)
[2018-01-26 14:38] VITALS: BP 116/80
== END 2018-01-26 14:53 ==
LOC: ERH 13:15 → ERHI 16:50 → 1NO 16:50 → ENRESERV 18:27 → ENTRNSPT 19:55 → EDTRNSPTSTS 20:00 → EDTRNSPT 20:00 → 1NO 20:13 → CMPTRNSPT 20:18 → ENPENDDIS 01-26 13:50 → 1NO 01-26 14:53
PROVIDERS: Hospitalist; Physician Assistant
DX: R47.01 Aphasia (principal); R41.0 Disorientation, unspecified; N40.0 Benign prostatic hyperplasia without lower urinary tract symptoms; G47.33 Obstructive sleep apnea (adult) (pediatric); Z91.19 Patient's noncompliance with other medical treatment and regimen; K76.0 Fatty (change of) liver, not elsewhere classified; Z87.442 Personal history of urinary calculi; M19.90 Unspecified osteoarthritis, unspecified site; Z87.891 Personal history of nicotine dependence
CPT/HCPCS: 70551; 36592; 81001; 82436; 92610-GN; 93005; 93010; 93306; 95816; 96372; 97116-GP; 97161-GP; G0378; G8978-GP; G8979-GP; G8980-GP; G8996-GN; G8997-GN; G8998-GN; J1644; J3490